=== PATIENT | female | born 1985 | race Caucasian/White ===

== ENCOUNTER 2019-07-26 23:20 | Emergency (ER) | payer BC ==
[2019-07-26 23:34] VITALS: PULSE 86
[2019-07-26] MEDS ORDERED: Ondansetron 4 MG/2 ML SDV IVPUSH ONE (23:38)
--- NOTE | 2019-07-26 23:44 | EDM.PDOC ---
ED HPI GENERAL MEDICAL PROBLEM - General Chief Complaint: General Stated Complaint: abd cramping Time Seen by Provider: 07/26/19 23:28 Source of Information: Reports: Patient History Limitations: Reports: No Limitations - History of Present Illness INITIAL COMMENTS - FREE TEXT/NARRATIVE: Patient presents with severe low abdominal pain that started 1.5 hours ago. She says she is about 6 weeks but hasn't seen OB yet. She denies any bleeding or spotting. Denies dysuria. Has nausea but no vomiting yet. She rates pain at 8/10 now, down from 10/10 a few minutes ago. Bilateral Lower Abdominal Pain Score (Numeric/FACES): 10 - Related Data Allergies Allergy/AdvReac Type Severity Reaction Status Date / Time No Known Drug Allergies Allergy Cannot Verified 07/26/19 23:36 Remember Home Meds: Home Meds Albuterol Sulfate [Proair Hfa] 2 puff INH Q4H PRN 12/17/15 [History] Albuterol [Proventil Neb Soln] 2.5 mg INH QID PRN 12/17/15 [History] EPINEPHrine [Epipen 2-Jacques] 1 injection SUBCUT ASDIRECTED PRN 12/17/15 [History] Esomeprazole [NexIUM] 40 mg PO DAILY 12/17/15 [History] Fluticasone Propionate [Flonase] 2 sprays NASBOTH DAILY 12/17/15 [History] Fluticasone/Salmeterol [Advair Diskus 500-50] 1 puff INH BID 12/17/15 [History] Loratadine [Claritin] 10 mg PO DAILY 12/17/15 [History] Montelukast [Singulair] 10 mg PO BEDTIME 12/17/15 [History] Multivitamin with Minerals [Multiple Vitamin] 1 tab PO DAILY 12/17/15 [History] ALPRAZolam [Xanax] 0.25 mg PO Q8H PRN 06/01/19 [History] Escitalopram Oxalate [Lexapro] 10 mg PO DAILY 06/01/19 [History] Non-Formulary Medication [NF Drug] 1 applic TOP DAILY 06/01/19 [History] Phentermine HCl [Adipex-P] 37.5 mg PO ASDIRECTED 06/01/19 [History] norgestimate-ethinyl estradioL [Estarylla 0.25-0.035 mg Tablet] 1 tab PO DAILY 06/01/19 [History] predniSONE [Prednisone] 20 mg PO BID PRN 06/01/19 [History] valACYclovir [Valtrex] 1,000 mg PO ASDIRECTED PRN 06/01/19 [History] Past Medical History HEENT History: Reports: Otitis Media Cardiovascular History: Reports: None Respiratory History: Reports: Asthma, Bronchitis, Recurrent Gastrointestinal History: Reports: None Genitourinary History: Reports: None 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) Other DRIER AND 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 OPERATOR History: dysmenorrhea Musculoskeletal History: Reports: None Neurological History: Reports: Concussion Psychiatric History: Reports: Addiction, Anxiety, Depression Endocrine/Metabolic History: Reports: None Hematologic History: Reports: None Immunologic History: Reports: None Oncologic (Cancer) History: Reports: None Dermatologic History: Reports: None - Past Surgical History HEENT Surgical History: Reports: None Cardiovascular Surgical History: Reports: None Respiratory Surgical History: Reports: None GI Surgical History: Reports: None Endocrine Surgical History: Reports: None Neurological Surgical History: Reports: None Musculoskeletal Surgical History: Reports: None Oncologic Surgical History: Reports: None Social & Family History - Family History Family Medical History: Noncontributory - Caffeine Use Caffeine Use: Reports: Coffee, Soda ED ROS GENERAL - Review of Systems Review Of Systems: See Below Constitutional: Denies: Fever, Chills, Malaise, Weakness HEENT: Denies: Ear Pain, Throat Pain, Vision Change Respiratory: Denies: Shortness of Breath, Cough Cardiovascular: Denies: Chest Pain, Lightheadedness, Syncope GI/Abdominal: Reports: Abdominal Pain, Nausea. Denies: Constipation, Diarrhea, Decreased Appetite, Vomiting : Denies: Dysuria, Flank Pain Musculoskeletal: Denies: Neck Pain, Shoulder Pain, Arm Pain, Back Pain, Hand Pain Skin: Denies: Cyanosis, Jaundice, Mottled, Pallor, Diaphoresis Neurological: Denies: Confusion, Dizziness, Headache, Seizure, Syncope, Trouble Speaking, Difficulty Walking Psychiatric: Denies: Agitation, Anxiety, Confusion ED EXAM, GENERAL - Physical Exam Exam: See Below Exam Limited By: No Limitations General Appearance: Alert, WD/WN, No Apparent Distress Eye Exam: Bilateral Eye: EOMI, Normal Inspection, PERRL Ears: Normal External Exam, Hearing Grossly Normal Nose: Normal Inspection, No Blood Throat/Mouth: Normal Inspection, Normal Lips, Normal Voice, No Airway Compromise Head: Atraumatic, Normocephalic Neck: Normal Inspection, Full Range of Motion Respiratory/Chest: No Respiratory Distress, Lungs Clear, Normal Breath Sounds, No Accessory Muscle Use Cardiovascular: Regular Rate, Rhythm, No Murmur GI/Abdominal: Normal Bowel Sounds, Soft, Tender (suprapubic, RLQ, LLQ) Back Exam: Normal Inspection, Full Range of Motion. No: CVA Tenderness (L), CVA Tenderness (R) Extremities: Normal Inspection, Normal Range of Motion, Non-Tender Neurological: Alert, Oriented, Normal Cognition, No Motor/Sensory Deficits Psychiatric: Normal Affect, Normal Mood Skin Exam: Warm, Dry, Intact, Normal Color, No Rash Course - Vital Signs Last Recorded V/S: Last Vital Signs Temp 97.1 F 07/26/19 23:25 Pulse 86 07/26/19 23:25 Resp 20 07/26/19 23:25 BP 142/91 H 07/26/19 23:25 Pulse Ox 99 07/26/19 23:25 - Orders/Labs/Meds Orders: Active Orders 24 hr Category Date Time Status Sodium Chloride 0.9% @ 999 MLS/HR (1000ml) Med 07/27/19 00:23 Ordered Sodium Chloride 0.9% [Normal Saline] 1,000 ml IV .BOLUS Medication Orders Sodium Chloride (Normal Saline) 1,000 mls @ 999 mls/hr IV .BOLUS ONE Stop: 07/27/19 01:23 Labs: Laboratory Tests 07/26/19 07/26/19 07/26/19 Range/Units 23:38 23:40 23:40 WBC 17.76 H D (5.00-10.00) 10^3/uL RBC 5.14 (3.80-5.50) 10^6/uL Hgb 15.1 (12.0-16.0) g/dL Hct 43.9 (37.0-47.0) % MCV 85.4 (82.0-92.0) fL MCH 29.4 (27.0-31.0) pg MCHC 34.4 (32.0-36.0) g/dL RDW 13.0 (11.5-14.5) % Plt Count 388 (150-400) 10^3/uL MPV 8.1 (7.4-10.4) fL Immature Gran % (Auto) 0.3 (0.0-5.0) % Neut % (Auto) 84.2 H (50.0-70.0) % Lymph % (Auto) 12.0 L (20.0-40.0) % [place] % (Auto) 3.3 (2.0-8.0) % Eos % (Auto) 0.0 L (1.0-3.0) % Baso % (Auto) 0.2 (0.0-1.0) % Immature Gran # (Auto) 0.05 (0.00-0.50) 10^3/uL Neut # (Auto) 14.97 H (2.50-7.00) 10^3/uL Lymph # (Auto) 2.13 (1.00-4.00) 10^3/uL [place] # (Auto) 0.58 (0.10-0.80) 10^3/uL Eos # (Auto) 0.00 L (0.10-0.30) 10^3/uL Baso # (Auto) 0.03 (0.00-0.10) 10^3/uL Sodium 138 (136-145) mmol/L Potassium 4.0 (3.3-5.3) mmol/L Chloride 102 (98-115) mmol/L Carbon Dioxide 23.3 (21.0-32.0) mmol/L Anion Gap 16.7 H (5-15) mmol/L BUN 15 (6-25) mg/dL Creatinine 0.63 (0.51-1.17) mg/dL Est Cr Clr Drug Dosing 92.08 mL/min Estimated GFR (MDRD) > 60 mL/min Glucose 122 H (75 - 99) mg/dL Calcium 9.9 (8.7-10.3) mg/dL Total Bilirubin 0.2 (0.2-1.0) mg/dL AST 21 (15-37) U/L ALT 38 (12-78) U/L Alkaline Phosphatase 72 (46-116) IU/L Total Protein 7.7 (6.4-8.2) g/dL Albumin 3.70 (3.00-4.80) g/dL HCG, Quant 59553 mIU/mL Specimen Type Urinblad Urine Color Yellow (YELLOW) Urine Appearance Clear (CLEAR) Urine pH 6.0 (5.0-9.0) Ur Specific [place] >= 1.030 (1.005-1.030) Urine Protein Negative (NEGATIVE) mg/dL Urine Glucose (UA) Negative (NEGATIVE) mg/dL Urine Ketones Negative (NEGATIVE) mg/dL Urine Occult Blood Negative (NEGATIVE) Urine Nitrite Negative (NEGATIVE) Urine Bilirubin Negative (NEGATIVE) Urine Urobilinogen 0.2 (0.2-1.0) E.U./dL Ur Leukocyte Esterase Negative (NEGATIVE) Urine RBC 0-5 (0-5) /HPF Urine WBC 0-5 (0-5) /HPF Ur Epithelial Cells Few /LPF Urine Bacteria Occasional (NONE TO FEW) /HPF Meds: Medications Generic Name Dose Route Start Last Admin Trade Name Freq PRN Reason Stop Dose Admin Sodium Chloride 1,000 mls @ 999 mls/hr 07/27/19 00:23 Normal Saline IV 07/27/19 01:23 .BOLUS ONE Discontinued Medications Generic Name Dose Route Start Last Admin Trade Name Freq PRN Reason Stop Dose Admin Hydromorphone HCl 1 mg 07/27/19 00:14 07/27/19 00:17 Dilaudid IVPUSH 07/27/19 00:15 1 mg ONETIME ONE Administration Ondansetron HCl 4 mg 07/26/19 23:38 07/26/19 23:52 Zofran IVPUSH 07/26/19 23:39 4 mg ONETIME ONE Administration - Re-Assessments/Exams Free Text/Narrative Re-Assessment/Exam: 07/27/19 00:18 WBC is 17.7, other labs are pending. Patient says nausea is now better after the Zofran but pain is still 8/10. She would like something for it. Will give Dilaudid 1 mg IV. I discussed case with Dr. Lim at [facility] who accepted for transfer. 07/27/19 00:42 [place] [address]. Departure - Departure Time of Disposition: 00:17 Disposition: DC/Tfer to Acute Hospital 02 Condition: Good Clinical Impression: Abdominal pain complicating , antepartum - Discharge Information Referrals: Tahira Fernandez, EVENT MARKETING COORDINATOR [Primary Care Provider] - Forms: ED Department Discharge Sepsis Event Note - Evaluation Sepsis Screening Result: No Definite Risk - Focused Exam Vital Signs: Vital Signs Temp Pulse Resp BP Pulse Ox 07/26/19 23:25 97.1 F 86 20 142/91 H 99 Date Exam was Performed: 07/27/19 Time Exam was Performed: 00:41 - My Orders Last 24 Hours: My Active Orders 07/27/19 00:23 Sodium Chloride 0.9% @ 999 MLS/HR (1000ml) Sodium Chloride 0.9% [Normal Saline] 1,000 ml IV .BOLUS - Assessment/Plan Last 24 Hours: My Active Orders 07/27/19 00:23 Sodium Chloride 0.9% @ 999 MLS/HR (1000ml) Sodium Chloride 0.9% [Normal Saline] 1,000 ml IV .BOLUS
[2019-07-27] MEDS ORDERED: HYDROmorphone 1 MG/ML Syringe IVPUSH ONE (00:14)
[2019-07-27] MEDS ORDERED: Sodium Chloride 0.9% 1,000 ML IV ONE (00:23)
[2019-07-27 00:39] LABS: ANION GAP 16.7 mmol/L (5-15); CHLORIDE,CL 102 mmol/L (98-115); SODIUM,NA 138 mmol/L (136-145)
[2019-07-27 02:04] VITALS: BP 112/61
== END 2019-07-27 01:00 ==
LOC: KA.ED 23:20
DX: O99.89 Other specified diseases and conditions complicating pregnancy, childbirth and the puerperium (principal); R10.30 Lower abdominal pain, unspecified; O99.511 Diseases of the respiratory system complicating pregnancy, first trimester; J45.909 Unspecified asthma, uncomplicated; O99.341 Other mental disorders complicating pregnancy, first trimester; F41.9 Anxiety disorder, unspecified; F32.9 Major depressive disorder, single episode, unspecified; Z79.899 Other long term (current) drug therapy; Z3A.01 Less than 8 weeks gestation of pregnancy
CPT/HCPCS: 36415; 80053; 81001; 84702; 85025; 96374; 99284; J1170; J2405; J7030

== ENCOUNTER 2020-07-18 09:59 | Emergency (ER) | payer MEDICAID ==
[2020-07-18] MEDS ORDERED: Sodium Chloride 0.9% 10 ML Syringe FLUSH PRN (10:09)
[2020-07-18] MEDS: Sodium Chloride 0.9% 1,000 ML IV ONE (10:20)
[2020-07-18 10:27] VITALS: BP 127/81; PULSE 87
[2020-07-18 10:45] LABS: ANION GAP 18.8 mmol/L (5-15); CHLORIDE,CL 101 mmol/L (98-107); SODIUM,NA 138 mmol/L (136-145)
--- NOTE | 2020-07-18 10:49 | EDM.PDOC ---
ED HPI GENERAL MEDICAL PROBLEM - General Chief Complaint: Abdominal Pain Stated Complaint: ABDOMINAL CRAMPING, VOMITTING Time Seen by Provider: 07/18/20 10:15 Source of Information: Reports: Patient History Limitations: Reports: No Limitations - History of Present Illness INITIAL COMMENTS - FREE TEXT/NARRATIVE: 34 YO WF [id number] WHO IS 29 WEEKS 5 DAYS BY LMP WHO REPORTS WAKING UP THIS AM WITH MILD ABDOMINAL CRAMPING WITH VOMITING. PT REPORTS SHE MISSED HER LAST OB APPOINTMENT WHICH WAS SCHEDULED FOR LAST WEEK. PT DENIES ANY VAGINAL BLEEDING OR SPOTTING, PT DENIES VAGINAL DISCHARGE OR SEVERE ABDOMINAL PAIN. PT REPORTS ABDOMINAL CRAMPS ARE MILD AND LAST FOR APPROXIMATELY 2-3 SECONDS. PT REPORTS INCREASED URINARY FREQUENCY AND URGENCY BUT DENIES DYSURIA. Onset: Today Location: Reports: Abdomen Quality: Reports: Ache Severity: Mild Improves with: Reports: None Worsens with: Reports: None Associated Symptoms: Reports: No Other Symptoms, Nausea/Vomiting Lower Abdominal Pain Score (Numeric/FACES): 8 - Related Data Allergies Allergy/AdvReac Type Severity Reaction Status Date / Time No Known Drug Allergies Allergy Cannot Verified 07/18/20 10:08 Remember Home Meds: Home Meds Albuterol [Proventil Neb Soln] 2.5 mg INH QID PRN 12/17/15 [History] EPINEPHrine [Epipen 2-Jacques] 1 injection SUBCUT ASDIRECTED PRN 12/17/15 [History] Fluticasone Propionate [Flonase] 2 sprays NASBOTH DAILY PRN 12/17/15 [History] Fluticasone/Salmeterol [Advair Diskus 500-50] 1 puff INH BID 12/17/15 [History] Loratadine [Claritin] 10 mg PO DAILY 12/17/15 [History] Montelukast [Singulair] 10 mg PO BEDTIME 12/17/15 [History] Multivitamin with Minerals [Multiple Vitamin] 1 tab PO DAILY 12/17/15 [History] Non-Formulary Medication [NF Drug] 1 applic TOP DAILY 06/01/19 [History] predniSONE [Prednisone] 20 mg PO BID PRN 06/01/19 [History] valACYclovir [Valtrex] 1,000 mg PO ASDIRECTED PRN 06/01/19 [History] Omeprazole 20 mg PO DAILY 07/18/20 [History] Ondansetron [Zofran ODT] 4 mg PO Q6H PRN 07/18/20 [History] Past Medical History HEENT History: Reports: Otitis Media Cardiovascular History: Reports: None Respiratory History: Reports: Asthma, Bronchitis, Recurrent Gastrointestinal History: Reports: None Genitourinary History: Reports: None 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 WIRER History: dysmenorrhea Musculoskeletal History: Reports: None Neurological History: Reports: Concussion Psychiatric History: Reports: Addiction, Anxiety, Depression Endocrine/Metabolic History: Reports: None Hematologic History: Reports: None Immunologic History: Reports: None Oncologic (Cancer) History: Reports: None Dermatologic History: Reports: None - Past Surgical History HEENT Surgical History: Reports: None Cardiovascular Surgical History: Reports: None Respiratory Surgical History: Reports: None GI Surgical History: Reports: None Endocrine Surgical History: Reports: None Neurological Surgical History: Reports: None Musculoskeletal Surgical History: Reports: None Oncologic Surgical History: Reports: None Social & Family History - Family History Family Medical History: No Pertinent Family History - Caffeine Use Caffeine Use: Reports: Coffee, Soda ED ROS GENERAL - Review of Systems Review Of Systems: See Below Constitutional: Reports: No Symptoms HEENT: Reports: No Symptoms Respiratory: Reports: No Symptoms Cardiovascular: Reports: No Symptoms Endocrine: Reports: No Symptoms GI/Abdominal: Reports: Abdominal Pain, Nausea, Vomiting : Reports: Frequency, Urgency Musculoskeletal: Reports: No Symptoms Skin: Reports: No Symptoms Neurological: Reports: No Symptoms Psychiatric: Reports: No Symptoms Hematologic/Lymphatic: Reports: No Symptoms Immunologic: Reports: No Symptoms ED EXAM, GI/ABD - Physical Exam Exam: See Below Exam Limited By: No Limitations General Appearance: Alert, WD/WN, No Apparent Distress Neck: Normal Inspection, Supple, Non-Tender, Full Range of Motion Respiratory/Chest: No Respiratory Distress, Lungs Clear, Normal Breath Sounds, No Accessory Muscle Use, Chest Non-Tender Cardiovascular: Normal Peripheral Pulses, Regular Rate, Rhythm, No Edema, No Gallop, No JVD, No Murmur, No Rub GI/Abdominal Exam: Normal Bowel Sounds, Soft, Non-Tender, No Organomegaly, No Distention, No Abnormal Bruit, No Mass, Pelvis Stable (Female) Exam: Deferred Back Exam: Normal Inspection, Full Range of Motion, NT Extremities: Normal Inspection, Normal Range of Motion, Non-Tender, Normal Capillary Refill, No Pedal Edema Neurological: Alert, Oriented, CN II-XII Intact, Normal Cognition, Normal Gait Psychiatric: Normal Affect, Normal Mood Skin Exam: Warm, Dry, Intact, Normal Color, No Rash Course - Vital Signs Text/Narrative:: FHT-159 BPM; NO EVIDENCE OF CONTRACTIONS ON TOCO MONITOR. Last Recorded V/S: Last Vital Signs Temp 96.1 F L 07/18/20 10:22 Pulse 87 07/18/20 10:22 Resp 16 07/18/20 10:22 BP 127/81 07/18/20 10:22 Pulse Ox 99 07/18/20 10:22 - Orders/Labs/Meds Orders: Active Orders 24 hr Category Date Time Status Heart Tones [RC] ASDIRECTED Care 07/18/20 10:09 Active Peripheral IV Care [RC] . DIRECTED Care 07/18/20 10:09 Active Sodium Chloride 0.9% [Saline Flush] Med 07/18/20 10:09 Active 10 ml FLUSH Q8HR PRN Peripheral IV Insertion Adult [OM.PC] Routine Oth 07/18/20 10:09 Ordered Medication Orders Sodium Chloride (Sodium Chloride 0.9% 10 Ml Syringe) 10 ml FLUSH Q8HR PRN PRN Reason: keep vein open Labs: Laboratory Tests 07/18/20 07/18/20 07/18/20 Range/Units 10:10 10:10 11:01 WBC 15.03 H (5.00-10.00) 10^3/uL RBC 4.12 (3.80-5.50) 10^6/uL Hgb 12.5 D (12.0-16.0) g/dL Hct 36.5 L (37.0-47.0) % MCV 88.6 D (82.0-92.0) fL MCH 30.3 (27.0-31.0) pg MCHC 34.2 (32.0-36.0) g/dL RDW 12.7 (11.5-14.5) % Plt Count 321 (150-400) 10^3/uL MPV 8.9 (7.4-10.4) fL Sodium 138 (136-145) mmol/L Potassium 4.0 (3.5-5.1) mmol/L Chloride 101 (98-107) mmol/L Carbon Dioxide 22.2 (21.0-32.0) mmol/L Anion Gap 18.8 H (5-15) mmol/L BUN 12 (7-18) mg/dL Creatinine 0.45 L (0.51-1.17) mg/dL Est Cr Clr Drug Dosing 127.72 mL/min Estimated GFR (MDRD) > 60 mL/min Glucose 83 (70-140) mg/dL Calcium 8.8 (8.7-10.3) mg/dL Total Bilirubin 0.4 (0.2-1.0) mg/dL AST 22 (15-37) U/L ALT 25 (14-63) U/L Alkaline Phosphatase 115 (46-116) U/L Total Protein 6.6 (6.4-8.2) g/dL Albumin 2.40 L (3.40-5.00) g/dL Lipase 160 (73-393) U/L Specimen Type Urincc Urine Color Yellow (YELLOW) Urine Appearance Slightly cloudy H (CLEAR) Urine pH 7.0 (5.0-9.0) Ur Specific [place] 1.025 (1.005-1.030) Urine Protein Negative (NEGATIVE) mg/dL Urine Glucose (UA) Negative (NEGATIVE) mg/dL Urine Ketones Negative (NEGATIVE) mg/dL Urine Occult Blood Negative (NEGATIVE) Urine Nitrite Negative (NEGATIVE) Urine Bilirubin Negative (NEGATIVE) Urine Urobilinogen 1.0 (0.2-1.0) E.U./dL Ur Leukocyte Esterase Negative (NEGATIVE) Urine RBC 0-5 (0-5) /HPF Urine WBC 0-5 (0-5) /HPF Ur Epithelial Cells Moderate H /LPF Other Crystals Not seen /HPF Urine Bacteria Rare (NONE TO FEW) /HPF Meds: Medications Generic Name Dose Route Start Last Admin Trade Name Freq PRN Reason Stop Dose Admin Sodium Chloride 10 ml 07/18/20 10:09 Sodium Chloride 0.9% 10 Ml Syringe FLUSH Q8HR PRN keep vein open Discontinued Medications Generic Name Dose Route Start Last Admin Trade Name Freq PRN Reason Stop Dose Admin Sodium Chloride 1,000 mls @ 999 mls/hr 07/18/20 10:09 07/18/20 10:20 Normal Saline IV 07/18/20 11:09 999 mls/hr .BOLUS ONE Administration Ondansetron HCl 4 mg 07/18/20 11:35 07/18/20 11:39 Ondansetron 4 Mg/2 Ml Sdv IVPUSH 07/18/20 11:36 4 mg ONETIME ONE Administration - Re-Assessments/Exams Free Text/Narrative Re-Assessment/Exam: 07/18/20 11:28 PT REPORTS SHE IS FEELING MUCH BETTER AFTER IV FLUID HYDRATION. PT DENIES ANY NAUSEA/VOMITING AT THIS TIME. PT REPORTS SHE HAS PRESCRIPTION FOR ZOFRAN AT HOME BUT HASN'T TAKEN ANY. PT RECOMMENDED TO FOLLOW UP WITH OB FOR FURTHER EVALUATION AND TREATMENT OR RETURN TO ER FOR WORSENING CRAMPING OR ANY VAGINAL BLEEDING. Departure - Departure Time of Disposition: 12:37 Disposition: Home, Self-Care 01 Condition: Good Clinical Impression: Dehydration during - Discharge Information Instructions: Warning Signs During , Care Referrals: Bianca Barnes MD [Primary Care Provider] - Forms: ED Department Discharge Additional Instructions: 1. DISCHARGE HOME 2. TAKE YOUR PRESCRIBED ZOFRAN NEEDED FOR NAUSEA/VOMITING 3. RETURN TO ER FOR VAGINAL BLEEDING OR SEVERE ABDOMINAL PAIN 4. FOLLOW UP WITH OB THIS WEEK FOR FURTHER EVALUATION AND TREATMENT 5. PLENTY OF FLUIDS TO AVOID DEHYDRATION Sepsis Event Note (ED) - Evaluation Sepsis Screening Result: No Definite Risk - Focused Exam Vital Signs: Vital Signs Temp Pulse Resp BP Pulse Ox 07/18/20 10:22 96.1 F L 87 16 127/81 99 - My Orders Last 24 Hours: My Active Orders 07/18/20 10:09 Heart Tones [RC] ASDIRECTED Peripheral IV Care [RC] . DIRECTED Sodium Chloride 0.9% [Saline Flush] 10 ml FLUSH Q8HR PRN Peripheral IV Insertion Adult [OM.PC] Routine - Assessment/Plan Last 24 Hours: My Active Orders 07/18/20 10:09 Heart Tones [RC] ASDIRECTED Peripheral IV Care [RC] . DIRECTED Sodium Chloride 0.9% [Saline Flush] 10 ml FLUSH Q8HR PRN Peripheral IV Insertion Adult [OM.PC] Routine Assessment:: 1. DEHYDRATION IN Plan: 1. DISCHARGE HOME 2. TAKE YOUR PRESCRIBED ZOFRAN NEEDED FOR NAUSEA/VOMITING 3. RETURN TO ER FOR VAGINAL BLEEDING OR SEVERE ABDOMINAL PAIN 4. FOLLOW UP WITH OB THIS WEEK FOR FURTHER EVALUATION AND TREATMENT 5. PLENTY OF FLUIDS TO AVOID DEHYDRATION
[2020-07-18] MEDS: Ondansetron 4 MG/2 ML SDV IVPUSH ONE (11:39)
== END 2020-07-18 12:51 | disposition home or self-care (01) ==
LOC: KA.ED 09:59
DX: O99.283 Endocrine, nutritional and metabolic diseases complicating pregnancy, third trimester (principal); E86.0 Dehydration; O99.513 Diseases of the respiratory system complicating pregnancy, third trimester; J45.909 Unspecified asthma, uncomplicated; Z3A.29 29 weeks gestation of pregnancy
CPT/HCPCS: 80053; 81001; 83690; 85027; 96374; 99284; 99284-25; J2405; J7030

== ENCOUNTER 2023-02-14 05:47 | Emergency (ER) | payer MEDICAID ==
[2023-02-14 06:03] VITALS: PULSE 92
[2023-02-14] MEDS ORDERED: Ondansetron 4 MG Tab.DIS PO ONE (06:24)
[2023-02-14] MEDS ORDERED: Amoxicillin 500 MG Cap PO ONE (07:15)
[2023-02-14 07:17] LABS: INFLUENZA A NAA NEGATIVE (NEGATIVE); INFLUENZA B NAA NEGATIVE (NEGATIVE); RESPIRATORY SYNCYTIAL VIR NAA NEGATIVE (NEGATIVE)
[2023-02-14 07:20] LABS: CORONAVIRUS COVID-19 NAA NEGATIVE (NEGATIVE)
[2023-02-14 07:38] VITALS: BP 168/115
== END 2023-02-14 07:20 | disposition home or self-care (01) ==
LOC: KA.ED 05:47
DX: J01.00 Acute maxillary sinusitis, unspecified (principal); R11.0 Nausea; Z79.899 Other long term (current) drug therapy
CPT/HCPCS: 0241U; 99283; A9270-GY

== ENCOUNTER 2023-02-22 16:55 | Emergency (ER) | payer MEDICAID ==
[2023-02-22] MEDS ORDERED: Sodium Chloride 0.9% 10 ML Syringe FLUSH PRN (17:11)
[2023-02-22 17:19] LABS: BASOPHILS ABSOLUTE AUTO 0.05 10^3/uL (0.00-0.10); BASOPHILS PERCENT AUTO 0.5 % (0.0-1.0); EOSINOPHILS ABSOLUTE AUTO 0.21 10^3/uL (0.10-0.30); EOSINOPHILS PERCENT AUTO 1.9 % (1.0-3.0); HEMOGLOBIN 13.3 g/dL (12.0-16.0); IMMATURE GRAN ABSOLUTE AUTO 0.04 10^3/uL (0.00-0.50); IMMATURE GRAN PERCENT AUTO 0.4 % (0.0-5.0); LYMPHOCYTES ABSOLUTE AUTO 2.58 10^3/uL (1.00-4.00); LYMPHOCYTES PERCENT AUTO 23.6 % (20.0-40.0); MEAN CORPUSCULAR HGB CONC 32.4 g/dL (32.0-36.0); MEAN CORPUSCULAR VOLUME 86.3 fL (82.0-92.0); MEAN PLATELET VOLUME 10.1 fL (7.4-10.4); MONOCYTES ABSOLUTE AUTO 0.62 10^3/uL (0.10-0.80); MONOCYTES PERCENT AUTO 5.7 % (2.0-8.0); NEUTROPHILS ABSOLUTE AUTO 7.41 10^3/uL (2.50-7.00); NEUTROPHILS PERCENT AUTO 67.9 % (50.0-70.0); PLATELET COUNT,PLT 276 10^3/uL (150-400); RED BLOOD CELL COUNT 4.75 10^6/uL (3.80-5.50); RED CELL DISTRIBUTION WIDTH 15.7 % (11.5-14.5); WHITE BLOOD CELL COUNT,WBC 10.91 10^3/uL (5.00-10.00)
[2023-02-22 17:21] VITALS: BP 159/114; PULSE 100
[2023-02-22 17:45] LABS: ALBUMIN 2.79 g/dL (3.40-5.00); ANION GAP 13.3 mmol/L (5-15); BILIRUBIN TOTAL 0.5 mg/dL (0.2-1.0); CALCIUM 8.2 mg/dL (8.7-10.3); CARBON DIOXIDE,CO2 25.7 mmol/L (21.0-32.0); CREATININE 0.9 mg/dL (0.51-1.17); EST CRCL DRUG DOSING (CG) 62.07 mL/min; PROTEIN TOTAL,TP 6.5 g/dL (6.4-8.2)
[2023-02-22 17:46] LABS: APPEARANCE,URINE CLEAR (CLEAR); BILIRUBIN,URINE NEGATIVE (NEGATIVE); COLOR,URINE LIGHT YELLOW (YELLOW); GLUCOSE,URINE NEGATIVE (NEGATIVE); KETONES,URINE NEGATIVE (NEGATIVE); LEUKOCYTE ESTERASE,URINE NEGATIVE (NEGATIVE); NITRITE,URINE NEGATIVE (NEGATIVE); OCCULT BLOOD,URINE TRACE-INTACT (NEGATIVE); PROTEIN,URINE NEGATIVE (NEGATIVE)
[2023-02-22 18:01] LABS: BACTERIA,URINE OCCASIONAL /HPF (NONE TO FEW); EPITHELIAL CELLS,URINE RARE /LPF; RBC,URINE 0-5 /HPF (0-5); WBC,URINE 0-5 /HPF (0-5)
== END 2023-02-22 19:10 | disposition home or self-care (01) ==
LOC: KA.ED 16:55
DX: R05.3 Chronic cough (principal); I51.7 Cardiomegaly; J45.909 Unspecified asthma, uncomplicated; Z79.899 Other long term (current) drug therapy; Z91.048 Other nonmedicinal substance allergy status
CPT/HCPCS: 36415; 71046; 80053; 81001; 83605; 83880; 85025; 85379; 99285; J3490